=== PATIENT | male | born 1935 | race Caucasian/White ===

== ENCOUNTER 2016-12-21 10:58 | Inpatient (IN) | payer OTHER ==
[~2016-12-21] VITALS: Ht 170.2 cm; Wt 111.5 kg
[~2016-12-21 10:58] MED LIST: BENA40TA55 PO; FERR325T10 PO; GLIP10TA PO; HYDR-3307 PO; OMEP-110 PO; PIOG45TA7 PO; SITA25TA PO; SUCR1TAB26 PO; ZOLP10TA PO
[2016-12-21] MEDS ORDERED: TAMS0.4C2 PO (11:20)
[2016-12-21] MEDS ORDERED: SODIUM CHLORIDE FLUSH 10ML SYR IVF ONE (12:00)
[2016-12-21] MEDS ORDERED: MORPHINE SULFATE 4 MG/ML, 1ML IVPush PRN (12:00)
[2016-12-21] MEDS ORDERED: LORazepam 2 MG/ML, 1ML IVP ONE (12:00)
[2016-12-21 12:14] LABS: ASPARTATE AMINO TRANSFERASE 16 U/L (15-37); BLOOD UREA NITROGEN 36 mg/dL (7-18)
[2016-12-21 12:21] LABS: IS PT STATUS REG ER OR PRE ER? YES
[2016-12-21] MEDS ORDERED: LORazepam 2 MG/ML, 1ML ONE (12:26)
[2016-12-21 15:53] VITALS: BP 142/82
[2016-12-21] MEDS: ENOXAPARIN 30 MG/0.3 ML SQ SCH (17:39)
[2016-12-21 17:47] LABS: IS PT STATUS REG ER OR PRE ER? NO
[2016-12-21 19:17] VITALS: BP 102/68
[2016-12-21 19:31] VITALS: BP 120/76
[2016-12-21] MEDS: INSULIN ASPART 100 UNITS/ML, PEN SQ-INSULIN SCH (20:40)
[2016-12-21] MEDS: ZOLPIDEM 5MG TABLET PO PRN (20:44)
[2016-12-21] MEDS: HYDROcodone/APAP 5/325 TABLET PO PRN (20:44)
[2016-12-21 23:12] LABS: IS PT STATUS REG ER OR PRE ER? NO
[2016-12-22 00:45] VITALS: BP 122/68
[2016-12-22 04:44] LABS: ASPARTATE AMINO TRANSFERASE 12 U/L (15-37); BLOOD UREA NITROGEN 31 mg/dL (7-18)
[2016-12-22 06:47] VITALS: BP 135/80
[2016-12-22] MEDS: INSULIN ASPART 100 UNITS/ML, PEN SQ-INSULIN SCH ×4 (07:00→21:23)
[2016-12-22] MEDS ORDERED: BENAZEPRIL 20 MG TABLET PO SCH (09:00)
[2016-12-22] MEDS: TAMSULOSIN 0.4 MG CAP.ER.24H PO SCH (10:13)
[2016-12-22] MEDS: FLUTICASONE NASAL SPRAY 16GM NAS SCH ×2 (13:00→21:00)
[2016-12-22 13:50] VITALS: BP 114/69
[2016-12-22] MEDS: ENOXAPARIN 30 MG/0.3 ML SQ SCH (19:03)
[2016-12-22 20:54] VITALS: BP 137/79
[2016-12-22] MEDS: HYDROcodone/APAP 5/325 TABLET PO PRN (20:56)
[2016-12-22] MEDS: ZOLPIDEM 5MG TABLET PO PRN (20:56)
[2016-12-22] MEDS ORDERED: FLUTICASONE NASAL SPRAY 16GM NAS SCH (21:00)
[2016-12-23 02:00] VITALS: BP 118/75
[2016-12-23] MEDS: INSULIN ASPART 100 UNITS/ML, PEN SQ-INSULIN SCH ×3 (07:00→16:00)
[2016-12-23 08:00] VITALS: BP 124/73
[2016-12-23] MEDS: FLUTICASONE NASAL SPRAY 16GM NAS SCH (08:14)
[2016-12-23] MEDS: TAMSULOSIN 0.4 MG CAP.ER.24H PO SCH (08:14)
[2016-12-23] MEDS ORDERED: REGADENOSON 0.4 MG/5 ML SYRINGE ONE (08:15)
[2016-12-23] MEDS ORDERED: AMINOPHYLLINE 25 MG/ML, 10ML ONE (08:57)
[2016-12-23] MEDS ORDERED: LOSARTAN 50MG TABLET PO SCH (09:00)
[2016-12-23 14:00] VITALS: BP 109/67
[2016-12-23] MEDS ORDERED: LOSA50TA2 PO (15:48)
[2016-12-23] MEDS ORDERED: CYAN500L PO (15:52)
[2016-12-23] MEDS: ENOXAPARIN 30 MG/0.3 ML SQ SCH (16:48)
[2016-12-23 19:38] VITALS: BP 113/71
== END 2016-12-23 22:21 | disposition home health service (06) | DRG 313 ==
LOC: ED 13:13 → EDIP 13:24 → 4EST 15:29
PROVIDERS: ADMIT Internal Medicine; ATTEND Internal Medicine
DX: R07.89 Other chest pain (principal); F13.20 Sedative, hypnotic or anxiolytic dependence, uncomplicated; N18.4 Chronic kidney disease, stage 4 (severe); N17.9 Acute kidney failure, unspecified; E11.649 Type 2 diabetes mellitus with hypoglycemia without coma; R09.82 Postnasal drip; R05 Cough; E11.21 Type 2 diabetes mellitus with diabetic nephropathy; E11.22 Type 2 diabetes mellitus with diabetic chronic kidney disease; F51.04 Psychophysiologic insomnia; Z96.659 Presence of unspecified artificial knee joint; M54.5 Low back pain; T46.5X5A Adverse effect of other antihypertensive drugs, initial encounter; G89.29 Other chronic pain; I12.9 Hypertensive chronic kidney disease with stage 1 through stage 4 chronic kidney disease, or unspecified chronic kidney disease; M19.90 Unspecified osteoarthritis, unspecified site; Z85.51 Personal history of malignant neoplasm of bladder; Z85.528 Personal history of other malignant neoplasm of kidney; Z87.11 Personal history of peptic ulcer disease; Z87.891 Personal history of nicotine dependence; Z90.79 Acquired absence of other genital organ(s); Y92.89 Other specified places as the place of occurrence of the external cause; E66.01 Morbid (severe) obesity due to excess calories; Z68.38 Body mass index [BMI] 38.0-38.9, adult; E53.8 Deficiency of other specified B group vitamins; T38.3X5A Adverse effect of insulin and oral hypoglycemic [antidiabetic] drugs, initial encounter
CPT/HCPCS: 36415; 71010; 74150; 78452; 78582; 80053; 80061; 81003; 82607; 82962; 83605; 83690; 83735; 84100; 84443; 84484; 85025; 85379; 87040; 93005; 93017; 93306; 93970; 96374; J1650; J1815; J2785; A9502; A9540; A9558; C9898; J0280; J2060

== ENCOUNTER 2017-04-03 11:20 | Inpatient (IN) | payer OTHER ==
[~2017-04-03] VITALS: Ht 172.7 cm; Wt 112.0 kg
[~2017-04-03 11:20] MED LIST changes: +CYAN500L2 PO; -FERR325T10 PO; +FERR325T17 PO; +LOSA50TA2 PO; +PIOG45TA20 PO; -PIOG45TA7 PO; -SUCR1TAB26 PO; +SUCR1TAB33 PO; +TAMS0.4C2 PO
[2017-04-03] MEDS ORDERED: SITA50TA PO (11:59)
[2017-04-03] MEDS ORDERED: BENA5TAB2 PO (11:59)
[2017-04-03] MEDS ORDERED: MORPHINE SULFATE 4 MG/ML, 1ML IVPush PRN (12:00)
[2017-04-03] MEDS ORDERED: ONDANSETRON 2MG/ML, 2ML IVPush ONE (12:00)
[2017-04-03] MEDS ORDERED: MORPHINE SULFATE 4 MG/ML, 1ML ONE (12:04)
[2017-04-03] MEDS ORDERED: ONDANSETRON 2MG/ML, 2ML ONE (12:05)
[2017-04-03 12:14] LABS: HEMATOCRIT 39.3 % (39.2-51.8); HEMOGLOBIN 12.8 g/dL (13.7-18.0); WHITE BLOOD COUNT 6.7 x10^3/uL (3.4-10)
[2017-04-03 12:28] LABS: BLOOD UREA NITROGEN 42 mg/dL (7-18)
[2017-04-03] MEDS ORDERED: SODIUM CHLORIDE 0.9% 1,000ML IVBOLUS ONE (13:00)
[2017-04-03] MEDS ORDERED: SODIUM CHLORIDE FLUSH 10ML SYR IVF ONE (13:00)
[2017-04-03] MEDS ORDERED: DOCUSATE 100 MG CAPSULE PO PRN (16:00)
[2017-04-03] MEDS ORDERED: ONDANSETRON 2MG/ML, 2ML IVPush PRN (16:00)
[2017-04-03] MEDS ORDERED: HYDROmorphone 2 MG/ML, 1ML IVPush PRN (16:00)
[2017-04-03] MEDS ORDERED: ACETAMINOPHEN 325 MG TABLET PO PRN (16:00)
[2017-04-03] MEDS: OXYcodone IR 5MG TABLET PO PRN (17:43)
[2017-04-03 17:44] VITALS: BP 134/82
[2017-04-03] MEDS: GABAPENTIN 100 MG CAPSULE PO SCH ×2 (18:07→21:29)
[2017-04-03] MEDS: DEXAMETHASONE 4 MG/ML, 1ML IVPush SCH (18:07)
[2017-04-03 19:59] VITALS: BP 148/77
[2017-04-03] MEDS: ZOLPIDEM 10MG TABLET PO SCH (20:57)
[2017-04-03] MEDS: INSULIN ASPART 100 UNITS/ML, PEN SQ-INSULIN SCH (21:33)
[2017-04-04] MEDS: DEXAMETHASONE 4 MG/ML, 1ML IVPush SCH ×2 (00:20→05:53)
[2017-04-04 02:00] VITALS: BP 133/82
[2017-04-04 05:17] LABS: ASPARTATE AMINO TRANSFERASE 14 U/L (15-37); BLOOD UREA NITROGEN 37 mg/dL (7-18)
[2017-04-04 08:02] VITALS: BP 158/76
[2017-04-04] MEDS: CYANOCOBALAMIN 1,000 MCG TABLET PO SCH (08:27)
[2017-04-04] MEDS: PANTOPROZOLE 40MG TABLET PO SCH (08:27)
[2017-04-04] MEDS: TAMSULOSIN 0.4 MG CAP.ER.24H PO SCH (08:27)
[2017-04-04] MEDS: LOSARTAN 50MG TABLET PO SCH (08:28)
[2017-04-04] MEDS: GABAPENTIN 100 MG CAPSULE PO SCH ×3 (08:28→20:31)
[2017-04-04] MEDS: SITAGLIPTIN 50MG TABLET PO SCH (08:28)
[2017-04-04] MEDS: INSULIN ASPART 100 UNITS/ML, PEN SQ-INSULIN SCH ×4 (08:29→20:32)
[2017-04-04] MEDS: OXYcodone IR 5MG TABLET PO PRN ×3 (09:50→20:32)
[2017-04-04] MEDS ORDERED: methylPREDNISolone 4mg DOSE PACK PO SCH (10:30)
[2017-04-04] MEDS ORDERED: methylPREDNISolone*ACETATE* 80 MG/ML ONE (11:12)
[2017-04-04] MEDS ORDERED: BUPIVACAINE/PF 0.5% ONE (11:12)
[2017-04-04] MEDS ORDERED: methylPREDNISolone *ACETATE* 40 MG/ML ONE (11:12)
[2017-04-04] MEDS ORDERED: LIDOCAINE 2%, 20ML ONE (11:12)
[2017-04-04] MEDS ORDERED: OMNIPAQUE 300 MG/ML, 10ML VIAL ONE (12:14)
[2017-04-04 14:06] VITALS: BP 127/70
[2017-04-04] MEDS: ZOLPIDEM 10MG TABLET PO SCH (20:32)
[2017-04-04 21:01] VITALS: BP 130/70
[2017-04-05] MEDS ORDERED: DIPHENHYDRAMINE 25 MG CAPSULE PO ONE (03:00)
[2017-04-05 03:58] VITALS: BP 142/85
[2017-04-05 08:10] VITALS: BP 105/66
[2017-04-05] MEDS: INSULIN ASPART 100 UNITS/ML, PEN SQ-INSULIN SCH ×4 (08:16→21:12)
[2017-04-05] MEDS: CYANOCOBALAMIN 1,000 MCG TABLET PO SCH (08:17)
[2017-04-05] MEDS: PANTOPROZOLE 40MG TABLET PO SCH (08:17)
[2017-04-05] MEDS: SITAGLIPTIN 50MG TABLET PO SCH (08:17)
[2017-04-05] MEDS: LOSARTAN 50MG TABLET PO SCH (08:18)
[2017-04-05] MEDS: GABAPENTIN 100 MG CAPSULE PO SCH ×3 (08:18→21:12)
[2017-04-05] MEDS: TAMSULOSIN 0.4 MG CAP.ER.24H PO SCH (08:18)
[2017-04-05] MEDS: OXYcodone IR 5MG TABLET PO PRN ×2 (08:30→21:13)
[2017-04-05 14:46] VITALS: BP 121/72
[2017-04-05 20:08] VITALS: BP 121/71
[2017-04-05] MEDS: ZOLPIDEM 10MG TABLET PO SCH (21:12)
[2017-04-06 01:48] VITALS: BP 125/75
[2017-04-06 06:58] LABS: BLOOD UREA NITROGEN 50 mg/dL (7-18)
[2017-04-06] MEDS: INSULIN ASPART 100 UNITS/ML, PEN SQ-INSULIN SCH ×4 (07:00→21:09)
[2017-04-06 07:05] LABS: HEMATOCRIT 40.4 % (39.2-51.8); HEMOGLOBIN 13.6 g/dL (13.7-18.0); WHITE BLOOD COUNT 13.5 x10^3/uL (3.4-10)
[2017-04-06] MEDS: PANTOPROZOLE 40MG TABLET PO SCH (07:30)
[2017-04-06 07:40] VITALS: BP 138/81
[2017-04-06] MEDS: LOSARTAN 50MG TABLET PO SCH ×2 (07:45→11:29)
[2017-04-06] MEDS: TAMSULOSIN 0.4 MG CAP.ER.24H PO SCH ×2 (07:45→11:28)
[2017-04-06] MEDS: CYANOCOBALAMIN 1,000 MCG TABLET PO SCH (07:46)
[2017-04-06] MEDS: SITAGLIPTIN 50MG TABLET PO SCH ×2 (07:46→11:28)
[2017-04-06] MEDS: GABAPENTIN 100 MG CAPSULE PO SCH ×3 (07:46→21:08)
[2017-04-06] MEDS: KETOROLAC 30 MG/1 ML IVPush SCH ×2 (11:28→14:56)
[2017-04-06] MEDS: OXYcodone IR 5MG TABLET PO PRN ×3 (11:30→21:08)
[2017-04-06 14:00] VITALS: BP 146/74
[2017-04-06 19:45] VITALS: BP 116/61
[2017-04-06] MEDS: ZOLPIDEM 10MG TABLET PO SCH (21:08)
[2017-04-07 01:36] VITALS: BP 151/85
[2017-04-07 05:41] LABS: HEMATOCRIT 40.6 % (39.2-51.8); HEMOGLOBIN 13.4 g/dL (13.7-18.0); WHITE BLOOD COUNT 10.4 x10^3/uL (3.4-10)
[2017-04-07 06:12] LABS: BLOOD UREA NITROGEN 54 mg/dL (7-18)
[2017-04-07 07:58] VITALS: BP 162/81
[2017-04-07] MEDS: INSULIN ASPART 100 UNITS/ML, PEN SQ-INSULIN SCH ×3 (08:10→16:23)
[2017-04-07] MEDS: PANTOPROZOLE 40MG TABLET PO SCH (08:10)
[2017-04-07] MEDS: LOSARTAN 50MG TABLET PO SCH (08:11)
[2017-04-07] MEDS: TAMSULOSIN 0.4 MG CAP.ER.24H PO SCH (08:11)
[2017-04-07] MEDS: CYANOCOBALAMIN 1,000 MCG TABLET PO SCH (08:11)
[2017-04-07] MEDS: SITAGLIPTIN 50MG TABLET PO SCH (08:11)
[2017-04-07] MEDS: GABAPENTIN 100 MG CAPSULE PO SCH ×2 (08:11→16:20)
[2017-04-07 13:59] VITALS: BP 106/68
[2017-04-07] MEDS ORDERED: OXYC5TAB3 PO (18:43)
[2017-04-07] MEDS ORDERED: GABA-826 PO (18:43)
== END 2017-04-07 19:40 | disposition home or self-care (01) | DRG 552 ==
LOC: ED 13:43 → EDIP 15:12 → 3NE 16:50
PROVIDERS: ADMIT Internal Medicine; ATTEND Internal Medicine
DX: M51.16 Intervertebral disc disorders with radiculopathy, lumbar region (principal); E11.22 Type 2 diabetes mellitus with diabetic chronic kidney disease; E87.5 Hyperkalemia; E66.01 Morbid (severe) obesity due to excess calories; M48.06 Spinal stenosis, lumbar region; N18.3 Chronic kidney disease, stage 3 (moderate); G89.29 Other chronic pain; I12.9 Hypertensive chronic kidney disease with stage 1 through stage 4 chronic kidney disease, or unspecified chronic kidney disease; M47.26 Other spondylosis with radiculopathy, lumbar region; Z96.659 Presence of unspecified artificial knee joint; M19.90 Unspecified osteoarthritis, unspecified site; Z85.46 Personal history of malignant neoplasm of prostate; Z68.37 Body mass index [BMI] 37.0-37.9, adult
CPT/HCPCS: 36415; 62322; 72072; 72110; 72114; 72148; 80048; 80053; 81003; 82040; 82947; 82962; 84132; 85025; 96361; 96374; 96375; J1100; J1815; J1885; J2405; J3490; J7509; Q9967; J1030; J1040; J7030

== ENCOUNTER 2018-11-20 19:26 | Observation (INO) | payer MEDICARE, OTHER ==
[~2018-11-20] VITALS: Ht 172.7 cm; Wt 123.3 kg
[~2018-11-20 19:26] MED LIST changes: +BENA5TAB3 PO; +GABA-826 PO; +OXYC5TAB3 PO; +SITA50TA PO
--- NOTE | 2018-11-20 19:37 | NUR ---
HIRAL WILSON FOR C/O LEFT KNEE PAIN. PT. REPORTS FELT A POP IN HIS KNEE THIS AM WHILE IN THE KITCHEN. "I WAS WALKING ON IT ALL DAY BUT ONCE I SAT DOWN ON THE COUCH I COULDN'T GET UP BECAUSE THE PAIN WAS TOO BAD." CMS INTACT. SOFIYA WARD IN TO [facility]. AND DISCUSS POC. CALL LIGHT IN REACH. ALL SAFETY MEASURES OBSERVED.
[2018-11-20] MEDS ORDERED: OXYcodone/APAP 5/325MG TABLET ONE (19:39)
[2018-11-20] MEDS ORDERED: ONDANSETRON ODT 4 MG ONE (19:39)
[2018-11-20] MEDS ORDERED: ONDANSETRON ODT 4 MG PO ONE (20:00)
[2018-11-20] MEDS ORDERED: OXYcodone/APAP 5/325MG TABLET PO ONE (20:00)
--- NOTE | 2018-11-20 20:37 | NUR ---
AT TO [facility] FOR ADMISSION.
[2018-11-20] MEDS ORDERED: TIZA2CAP2 PO (21:14)
[2018-11-20] MEDS ORDERED: GLIP5TAB22 PO (21:14)
[2018-11-20] MEDS ORDERED: BENA10TA4 PO (21:14)
--- NOTE | 2018-11-20 21:24 | NUR ---
REPORT HAD BEEN GIVEN TO AMANDA RESENDEZ. FLOOR READY FOR PT. TRANSPORT.
[2018-11-20] MEDS ORDERED: OXYcodone IR 5MG TABLET PO PRN (22:00)
[2018-11-20] MEDS ORDERED: IBUPROFEN 600 MG TABLET PO SCH (22:00)
[2018-11-20] MEDS ORDERED: morphine SULFATE 10 MG/ML, 1ML IVPush PRN (22:00)
[2018-11-20] MEDS: HEPARIN 5,000 UNITS/ML, 1ML SQ SCH (22:18)
[2018-11-20 22:19] VITALS: BP 126/75
[2018-11-20 22:42] LABS: ANION GAP 6 mmol/L (5-15); CALCIUM 8.4 mg/dL (8.5-10.1); CHLORIDE 118 mmol/L (98-107); CREATININE 1.88 mg/dL (0.7-1.3)
[2018-11-21 03:59] VITALS: BP 121/73
[2018-11-21] MEDS: HEPARIN 5,000 UNITS/ML, 1ML SQ SCH ×3 (04:34→21:05)
[2018-11-21 07:44] VITALS: BP 127/78
[2018-11-21] MEDS: HYDROcodone/APAP 10/325 MG TABLET PO SCH ×2 (09:35→21:04)
[2018-11-21] MEDS: TAMSULOSIN 0.4 MG CAP.ER.24H PO SCH (09:36)
[2018-11-21] MEDS: PIOGLITAZONE 15 MG TABLET PO SCH (09:36)
[2018-11-21] MEDS: LINAGLIPTIN 5 MG TAB PO SCH (09:36)
[2018-11-21] MEDS: CYANOCOBALAMIN 1,000 MCG TABLET PO SCH (09:36)
[2018-11-21 13:44] VITALS: BP 126/74
[2018-11-21 20:20] VITALS: BP 138/71
[2018-11-21] MEDS ORDERED: ZOLPIDEM 10MG TABLET PO SCH (21:00)
[2018-11-22 03:14] VITALS: BP 128/73
[2018-11-22] MEDS: HEPARIN 5,000 UNITS/ML, 1ML SQ SCH ×2 (05:48→14:21)
[2018-11-22 07:16] VITALS: BP 116/53
[2018-11-22] MEDS: TAMSULOSIN 0.4 MG CAP.ER.24H PO SCH (08:33)
[2018-11-22] MEDS: CYANOCOBALAMIN 1,000 MCG TABLET PO SCH (08:33)
[2018-11-22] MEDS: HYDROcodone/APAP 10/325 MG TABLET PO SCH (08:33)
[2018-11-22] MEDS: PIOGLITAZONE 15 MG TABLET PO SCH (08:33)
[2018-11-22] MEDS: LINAGLIPTIN 5 MG TAB PO SCH (08:34)
[2018-11-22 14:11] VITALS: BP 109/69
== END 2018-11-22 15:50 | disposition home or self-care (01) ==
LOC: ED 20:18 → INTOOBSV 20:23 → EDIP 20:23 → ED 20:38 → 4NOR 21:31
PROVIDERS: ADMIT Family Medicine; ATTEND Family Medicine
DX: M79.662 Pain in left lower leg (principal); E11.22 Type 2 diabetes mellitus with diabetic chronic kidney disease; G89.11 Acute pain due to trauma; I12.9 Hypertensive chronic kidney disease with stage 1 through stage 4 chronic kidney disease, or unspecified chronic kidney disease; N18.9 Chronic kidney disease, unspecified; Z85.46 Personal history of malignant neoplasm of prostate; Z85.528 Personal history of other malignant neoplasm of kidney; Z87.11 Personal history of peptic ulcer disease; Z91.81 History of falling; Z96.651 Presence of right artificial knee joint
CPT/HCPCS: 36415; 73564; 73590; 80048; 93971; 96372; 96374; 97116; 97162; 97166; 97530; 99284; G0378; J1644; J2270

== ENCOUNTER → 2020-07-17 | Outpatient (CLI) | payer MEDICARE ==
[~2020-07-17] MED LIST changes: +BENA10TA59 PO; +COLC0.6C3 PO; +DULO20CA18 PO; +FURO40TA6 PO; +GLIP5TAB22 PO; +HYDR-3246 PO; -HYDR-3307 PO; +LOSA25TA25 PO; +TIZA2CAP2 PO; +TIZA4TAB2 PO
== END | disposition home or self-care (01) ==
LOC: CFH 13:12
PROVIDERS: ATTEND Family Medicine
DX: J90 Pleural effusion, not elsewhere classified (principal); J98.11 Atelectasis; J94.8 Other specified pleural conditions; M47.814 Spondylosis without myelopathy or radiculopathy, thoracic region
CPT/HCPCS: 71250